=== PATIENT | female | born 1990 | race Caucasian/White ===

== ENCOUNTER 2021-11-20 16:37 | Emergency (ER) | payer OTHER ==
[2021-11-20 17:05] VITALS: BP 118/70; PULSE 77; TEMP 98; BMI 22.6
[2021-11-20] MEDS ORDERED: ACETAMINOPHEN 1000 MG/100 ML BAG IVPB ONE (18:31)
[2021-11-20] MEDS ORDERED: SODIUM CHLORIDE 1,000 ML IV STA (18:31)
[2021-11-20] MEDS ORDERED: ACETAMINOPHEN INJECTION 100 ML IVPB ONE (19:37)
[2021-11-20 20:23] LABS: EPI CELLS 3 /uL (0-25.1); HYALINE CASTS 2 /uL (0-3.1); PH,URINE 6.5 (5.0-8.0); URINE APPEARANCE TURBID; URINE BACTERIA 8805 /uL (0-1359); URINE BILIRUBIN NEGATIVE (NEGATIVE); URINE COLOR DK YELLOW; URINE GLUCOSE (UA) NEGATIVE (NEGATIVE); URINE KETONE TRACE (NEGATIVE); URINE LEUK ESTERASE 3+ (NEGATIVE); URINE NITRITE POSITIVE (NEGATIVE); URINE PROTEIN 1+ (NEGATIVE); URINE WBC 2873 /uL (0-25.8)
[2021-11-20 20:29] LABS: BASO % 0.2 % (0-2.0); EOS % 0.5 % (0-4.5); HEMATOCRIT 39.4 % (32.4-45.2); HEMOGLOBIN 12.9 GM/dL (10.7-15.3); LYMPH % 4.7 % (8-40); MCH 29.8 pg (25.7-33.7); MCHC 32.8 g/dl (32.0-36.0); MEAN CELL VOLUME 90.9 fl (80-96); MEAN PLT VOLUME 9.5 fl (7.5-11.1); MONO % 6.3 % (3.8-10.2); NEUT % 88.3 % (42.8-82.8); PLATELET COUNT 234 10^3/uL (134-434); RBC 4.33 M/mm3 (3.60-5.2); RDW 12.8 % (11.6-15.6); WHITE BLOOD COUNT 11.3 K/mm3 (4.0-10.0)
[2021-11-20 20:37] LABS: CALCIUM 8.5 mg/dL (8.5-10.1)
[2021-11-20 20:38] LABS: ALBUMIN 3.7 g/dl (3.4-5.0); BLOOD UREA NITROGEN 12.8 mg/dL (7-18)
[2021-11-20 20:39] LABS: URINE RBC 31.6 /uL (0-23.9); YEAST OCCASIONAL (NEGATIVE)
[2021-11-20 20:41] LABS: CREATININE 0.7 mg/dL (0.55-1.3)
[2021-11-20 20:42] LABS: TOT PROT 6.3 g/dl (6.4-8.2)
[2021-11-20 20:43] LABS: BILIRUBIN,TOTAL 0.8 mg/dL (0.2-1)
== END 2021-11-20 22:07 | disposition home or self-care (01) ==
LOC: JER 16:37
PROC: 3E033GC Introduction of Other Therapeutic Substance into Peripheral Vein, Percutaneous Approach (ICD-10-PCS; principal; 2021-11-20)
DX: N30.01 Acute cystitis with hematuria (principal); B37.3 Candidiasis of vulva and vagina
CPT/HCPCS: 36415; 76830-TC; 80053; 81003; 84703; 85025; 87070; 87077; 87086; 87186; 87205; 87491; 87591; 87661; 96361; 96374; 99284-25

== ENCOUNTER 2024-02-02 23:32 | Emergency (ER) | payer OTHER ==
[2024-02-02 23:35] VITALS: BP 109/68; PULSE 65; RESP 17; TEMP 98.1; BMI 52.9
[2024-02-03] MEDS: IBUPROFEN 600 MG TABLET (FP) PO ONE (00:03)
[2024-02-03] MEDS ORDERED: IBUPROFEN 600 MG TABLET (FP) PO ONE (00:03)
== END 2024-02-03 00:13 | disposition home or self-care (01) ==
LOC: JER 23:32
DX: M54.9 Dorsalgia, unspecified (principal); M54.2 Cervicalgia; V49.40XA Driver injured in collision with unspecified motor vehicles in traffic accident, initial encounter
CPT/HCPCS: 99283-25

== ENCOUNTER 2024-08-16 16:19 | Emergency (ER) | payer OTHER ==
[2024-08-16 16:38] VITALS: BP 139/86; PULSE 81; RESP 18; TEMP 97; BMI 22.3
[2024-08-16] MEDS ORDERED: ONDANSETRON *ODT* 4 MG TABLET ONE (17:53)
[2024-08-16] MEDS: ONDANSETRON *ODT* 4 MG TABLET SL ONE (17:54)
[2024-08-16 19:53] LABS: HIV INTERPRETATION NEGATIVE (NEGATIVE)
== END 2024-08-16 20:23 | disposition home or self-care (01) ==
LOC: JERFT 16:19 → JER 16:19 → JERFT 20:23
DX: S00.83XA Contusion of other part of head, initial encounter (principal); R11.0 Nausea; R42 Dizziness and giddiness; Y04.8XXA Assault by other bodily force, initial encounter
CPT/HCPCS: 36415; 70450-TC; 70486-TC; 86803; 87389; 99284-25; Q0162

== ENCOUNTER 2024-09-22 10:22 | Emergency (ER) | payer OTHER ==
[2024-09-22 11:34] LABS: HCG,QUALITATIVE URINE Positive
[2024-09-22 11:35] LABS: PH,URINE 7.5 (5.0-8.0); URINE APPEARANCE CLOUDY; URINE BILIRUBIN NEGATIVE (NEGATIVE); URINE COLOR YELLOW; URINE GLUCOSE (UA) NEGATIVE (NEGATIVE); URINE KETONE NEGATIVE (NEGATIVE); URINE LEUK ESTERASE NEGATIVE (NEGATIVE); URINE NITRITE NEGATIVE (NEGATIVE); URINE PROTEIN NEGATIVE (NEGATIVE); URINE UROBILINOGEN 0.2 mg/dL (0.2-1.0)
[2024-09-22 11:36] LABS: BASO % 0.7 % (0-2.0); EOS % 2.4 % (0-4.5); HEMATOCRIT 40.7 % (32.4-45.2); HEMOGLOBIN 13.6 GM/dL (10.7-15.3); LYMPH % 22.9 % (8-40); MCH 30.2 pg (25.7-33.7); MCHC 33.5 g/dl (32.0-36.0); MEAN CELL VOLUME 90.2 fl (80-96); MEAN PLT VOLUME 9.4 fl (7.5-11.1); PLATELET COUNT 224 10^3/uL (134-434); RBC 4.52 M/mm3 (3.60-5.2); RDW 13.6 % (11.6-15.6); WHITE BLOOD COUNT 7.2 K/mm3 (4.0-10.0)
[2024-09-22 11:55] LABS: ALBUMIN 3.6 g/dl (3.4-5.0); CALCIUM 9.1 mg/dL (8.5-10.1)
[2024-09-22 11:59] LABS: CREATININE 0.6 mg/dL (0.55-1.3)
[2024-09-22 12:00] LABS: BILIRUBIN,TOTAL 0.4 mg/dL (0.2-1); TOT PROT 6.4 g/dl (6.4-8.2)
[2024-09-22 12:49] LABS: EPI CELLS 17 /uL (0-25.1); HIV INTERPRETATION NEGATIVE (NEGATIVE); HYALINE CASTS 0 /uL (0-3.1); URINE BACTERIA 148 /uL (0-1359); URINE RBC 15 /uL (0-23.9); URINE WBC 2 /uL (0-25.8)
[2024-09-22 13:05] VITALS: BP 138/62; PULSE 65; RESP 17; TEMP 98.1; BMI 20.9
== END 2024-09-22 14:46 | disposition left against medical advice (07) ==
LOC: JER 10:22
DX: O26.891 Other specified pregnancy related conditions, first trimester (principal); R10.9 Unspecified abdominal pain; O99.331 Smoking (tobacco) complicating pregnancy, first trimester; F17.210 Nicotine dependence, cigarettes, uncomplicated; Z3A.01 Less than 8 weeks gestation of pregnancy
CPT/HCPCS: 36415; 76801-TC; 80053; 81003; 84702; 84703; 85025; 86780; 86850; 86900; 86901; 87086; 87389; 87491; 87522; 87591; 99284-25